=== PATIENT | male | born 1970 | race Caucasian/White ===

== ENCOUNTER → 2017-05-28 | Outpatient (CLI) | payer BC ==
[~2017-05-28] MED LIST: DAYPRO600 M1 PO; FENOGLIDE40 MG PO; LIPITOR40 MG PO; LOPRESSOR25 MG PO; MEDROL DOSEPAK4 MG PO; METFORMIN500 MG PO; PERCOCET 325 MG1 TA2 PO; ROBAXIN750 MG PO; VICODIN 500 MG-1 TAB PO
== END | disposition home or self-care (01) ==
LOC: NM 09:42
DX: M25.562 Pain in left knee (principal); R26.2 Difficulty in walking, not elsewhere classified

== ENCOUNTER → 2021-04-18 | Outpatient (CLI) | payer BC | END | disposition home or self-care (01) | LOC: RAD 14:17 | PROVIDERS: ATTEND Nurse Practitioner Family | DX: M79.89 Other specified soft tissue disorders (principal); M19.042 Primary osteoarthritis, left hand ==

== ENCOUNTER → 2021-04-29 | Outpatient (CLI) | payer BC | END | disposition home or self-care (01) | LOC: US 16:00 | PROVIDERS: ATTEND Nurse Practitioner Family | DX: M79.645 Pain in left finger(s) (principal); M79.89 Other specified soft tissue disorders; M25.842 Other specified joint disorders, left hand ==

== ENCOUNTER 2021-05-27 10:33 | Emergency (ER) | payer BC ==
[~2021-05-27] VITALS: Ht 190.5 cm; Wt 113.4 kg
[2021-05-27 10:37] VITALS: BP 151/92
[2021-05-27] MEDS ORDERED: ZOCOR20 MG PO (10:42)
[2021-05-27] MEDS ORDERED: ZESTRIL10 MG PO (10:43)
[2021-05-27] MEDS ORDERED: METFORMIN HYDR750 MG PO (10:43)
[2021-05-27] MEDS ORDERED: ASPIRIN CHEWABL81 MG PO (10:44)
[2021-05-27] MEDS ORDERED: OMEGA 3 FISH O1 EACH PO (10:44)
[2021-05-27] MEDS ORDERED: NAPROSYN500 MG PO (16:03)
== END 2021-05-27 17:08 | disposition home or self-care (01) ==
LOC: ED 10:33
DX: S93.402A Sprain of unspecified ligament of left ankle, initial encounter (principal); Z79.899 Other long term (current) drug therapy; Z79.82 Long term (current) use of aspirin; X50.1XXA Overexertion from prolonged static or awkward postures, initial encounter; Y93.89 Activity, other specified; Y92.89 Other specified places as the place of occurrence of the external cause; Y99.8 Other external cause status